=== PATIENT | female | born 1995 | race Hispanic/Latino ===

== ENCOUNTER 2019-11-28 20:45 | Emergency (ER) | payer OTHER ==
[2019-11-28] MEDS ORDERED: ONDANSETRON HCL 4 MG/2 ML VIAL ONE (21:14)
[2019-11-28] MEDS ORDERED: MORPHINE SULFATE 4 MG/1ML SYG ONE (21:15)
[2019-11-28 21:16] LABS: APPEARANCE,URINE Clear (CLEAR); BILIRUBIN,URINE Negative (NEGATIVE); COLOR,URINE Yellow (YELLOW); GLUCOSE, URINE (UA) Negative (NEGATIVE); KETONES,URINE Negative (NEGATIVE); LEUKOCYTE ESTERASE ,URINE Small (NEGATIVE); NITRATE,URINE Negative (NEGATIVE); OCCULT BLOOD,URINE Large (NEGATIVE); PROTEIN,URINE Negative (NEGATIVE)
[2019-11-28 21:18] LABS: HCG,QUAL RESULT NEGATIVE (NEGATIVE)
[2019-11-28 21:24] LABS: BASOPHILS % (AUTO) 0.3 % (0.0-5.0); EOSINOPHILS % (AUTO) 1.5 % (0.0-8.0); HEMATOCRIT 38.9 % (36-48); LYMPHOCYTES % (AUTO) 24.5 % (21.0-51.0); MEAN CORPUSCULAR HEMOGLOBIN 28.4 pg (27.0-33.0); MEAN CORPUSCULAR HGB CONC 32.9 g/dL (32.0-36.0); MEAN CORPUSCULAR VOLUME 86.3 fL (79-99); MONOCYTES % (AUTO) 4.8 % (3.0-13.0); NEUTROPHILS % (AUTO) 68.4 % (40.0-77.0); PLATELET COUNT (AUTO) 308 K/uL (130-400); RED BLOOD CELL COUNT(AUTO) 4.51 MIL/uL (4.00-5.50); RED CELL DISTRIBUTION WIDTH 12.6 % (11.0-15.5)
[2019-11-28 21:32] LABS: RBC,URINE 0-1 /HPF (0-1)
[2019-11-28 21:35] LABS: BACTERIA,URINE Few /HPF (None Seen)
[2019-11-28 21:36] LABS: CREATININE 0.8 mg/dL (0.5-1.5); POTASSIUM 3.9 mmol/L (3.5-5.1)
[2019-11-28 21:38] LABS: SQUAMOUS EPITHELIAL CELL,UR Moderate /HPF (0-2)
[2019-11-28 21:40] LABS: ALBUMIN 3.9 g/dL (3.5-5.0); BILIRUBIN,TOTAL 0.6 mg/dL (0.2-1.0); TOTAL PROTEIN, SERUM 7.6 g/dL (6.0-8.3)
[2019-11-28] MEDS ORDERED: MAG HYDROX/AL HYDROX/SIMETH ES 30 ML SUSP UDCUP ONE (22:50)
[2019-11-28] MEDS ORDERED: LIDOCAINE HCL 2% VISCOUS 15 ML UDCUP ONE (22:50)
== END 2019-11-29 00:17 | disposition home or self-care (01) ==
LOC: EDH 20:45
DX: K29.70 Gastritis, unspecified, without bleeding (principal); N39.0 Urinary tract infection, site not specified; R10.10 Upper abdominal pain, unspecified; Z98.890 Other specified postprocedural states
CPT/HCPCS: 36415; 76705; 80053; 81001; 81025; 83690; 85025; 87088; 96361; 96374; 96375; 99284; J2270; J2405

== ENCOUNTER 2021-01-18 19:20 | Emergency (ER) | payer OTHER ==
[~2021-01-18] VITALS: Ht 152.4 cm; Wt 74.8 kg
[2021-01-18 19:44] VITALS: BP 130/69
[2021-01-18 19:44] LABS: BASOPHILS % (AUTO) 0.2 % (0.0-5.0); EOSINOPHILS % (AUTO) 1.1 % (0.0-8.0); HEMATOCRIT 40.4 % (36-48); LYMPHOCYTES % (AUTO) 27.2 % (21.0-51.0); MEAN CORPUSCULAR HEMOGLOBIN 25.9 pg (27.0-33.0); MEAN CORPUSCULAR HGB CONC 31.7 g/dL (32.0-36.0); MEAN CORPUSCULAR VOLUME 81.8 fL (79-99); MONOCYTES % (AUTO) 4.2 % (3.0-13.0); NEUTROPHILS % (AUTO) 66.9 % (40.0-77.0); PLATELET COUNT (AUTO) 349 K/uL (130-400); RED BLOOD CELL COUNT(AUTO) 4.94 MIL/uL (4.00-5.50); RED CELL DISTRIBUTION WIDTH 14.7 % (11.0-15.5); WHITE BLOOD COUNT (AUTO) 10.2 K/uL (4.8-10.8)
[2021-01-18 19:45] LABS: APPEARANCE,URINE Clear (CLEAR); BILIRUBIN,URINE Negative (NEGATIVE); COLOR,URINE Yellow (YELLOW); GLUCOSE, URINE (UA) Negative (NEGATIVE); KETONES,URINE Trace mg/dL (NEGATIVE); LEUKOCYTE ESTERASE ,URINE Small (NEGATIVE); NITRATE,URINE Negative (NEGATIVE); OCCULT BLOOD,URINE Negative (NEGATIVE); PH,URINE 7.5 (5.0-8.0); PROTEIN,URINE Negative (NEGATIVE)
[2021-01-18 19:53] LABS: HCG,QUAL RESULT NEGATIVE (NEGATIVE)
[2021-01-18] MEDS ORDERED: HYDROMORPHONE 0.5 MG SYG (0.5MG/0.5ML) ONE (19:54)
[2021-01-18 19:57] LABS: BACTERIA,URINE Few /HPF (None Seen); MUCUS,URINE Moderate LPF (None Seen); SQUAMOUS EPITHELIAL CELL,UR Moderate /HPF (0-2)
[2021-01-18 19:59] LABS: CREATININE 0.7 mg/dL (0.5-1.5); POTASSIUM 3.4 mmol/L (3.5-5.1)
[2021-01-18 20:03] LABS: ALBUMIN 3.8 g/dL (3.5-5.0); BILIRUBIN,TOTAL 0.6 mg/dL (0.2-1.0); TOTAL PROTEIN, SERUM 7.9 g/dL (6.0-8.3)
[2021-01-18 20:43] VITALS: BP 106/60
[2021-01-18] MEDS ORDERED: HYDROMORPHONE 0.5 MG SYG (0.5MG/0.5ML) IVP ONE (20:45)
[2021-01-18] MEDS ORDERED: ONDANSETRON 4MG INJ IVP ONE (20:45)
[2021-01-18 21:50] VITALS: BP 119/44
[2021-01-18] MEDS ORDERED: CEPH500C2 PO (22:22)
[2021-01-18] MEDS ORDERED: ACET1TAB25 PO (22:22)
[2021-01-18] MEDS ORDERED: CEFTRIAXONE 1G VIAL IVP SCH (22:30)
[2021-01-18 22:36] VITALS: BP 106/60
== END 2021-01-18 23:10 | disposition home or self-care (01) ==
LOC: EDH 19:20
DX: N39.0 Urinary tract infection, site not specified (principal); R10.11 Right upper quadrant pain; R10.13 Epigastric pain; R11.2 Nausea with vomiting, unspecified
CPT/HCPCS: 36415; 74176; 76705; 80053; 81001; 81025; 83690; 85025; 87088; 96374; 96375; 99285; J0696; J1170; J2405

== ENCOUNTER 2021-08-17 10:22 | Emergency (ER) | payer OTHER ==
[~2021-08-17] VITALS: Ht 154.9 cm; Wt 86.2 kg
[~2021-08-17 10:22] MED LIST: ACET1TAB25 PO; CEPH500C2 PO
[2021-08-17 10:44] LABS: BASOPHILS % (AUTO) 0.3 % (0.0-5.0); EOSINOPHILS % (AUTO) 1.6 % (0.0-8.0); HEMATOCRIT 38.3 % (36-48); LYMPHOCYTES % (AUTO) 40.7 % (21.0-51.0); MEAN CORPUSCULAR HEMOGLOBIN 27.3 pg (27.0-33.0); MEAN CORPUSCULAR HGB CONC 32.4 g/dL (32.0-36.0); MEAN CORPUSCULAR VOLUME 84.4 fL (79-99); MONOCYTES % (AUTO) 4.4 % (3.0-13.0); NEUTROPHILS % (AUTO) 52.3 % (40.0-77.0); PLATELET COUNT (AUTO) 338 K/uL (130-400); RED BLOOD CELL COUNT(AUTO) 4.54 MIL/uL (4.00-5.50); RED CELL DISTRIBUTION WIDTH 13.4 % (11.0-15.5); WHITE BLOOD COUNT (AUTO) 8.8 K/uL (4.8-10.8)
[2021-08-17 10:54] LABS: INR 0.98 (0.85-1.15); PROTHROMBIN TIME 10.7 SEC (9.6-11.6)
[2021-08-17 11:22] LABS: ALBUMIN 3.8 g/dL (3.5-5.0); BILIRUBIN,TOTAL 0.5 mg/dL (0.2-1.0); CREATININE 0.6 mg/dL (0.5-1.5); POTASSIUM 3.5 mmol/L (3.5-5.1); TOTAL PROTEIN, SERUM 7.9 g/dL (6.0-8.3)
[2021-08-17 12:24] LABS: APPEARANCE,URINE TURBID (CLEAR); BILIRUBIN,URINE NEGATIVE (NEGATIVE); COLOR,URINE RED (YELLOW); GLUCOSE, URINE (UA) 100 mg/dL (NEGATIVE); KETONES,URINE 5 mg/dL (NEGATIVE); LEUKOCYTE ESTERASE ,URINE TRACE (NEGATIVE); NITRATE,URINE POSITIVE (NEGATIVE); OCCULT BLOOD,URINE LARGE (NEGATIVE); PH,URINE 6.5 (5.0-8.0); PROTEIN,URINE 100 mg/dL (NEGATIVE)
[2021-08-17 12:31] LABS: HCG,QUAL RESULT NEGATIVE (NEGATIVE)
[2021-08-17 12:52] LABS: BACTERIA,URINE Rare /HPF (None Seen); RBC,URINE TNTC /HPF (0-1); SQUAMOUS EPITHELIAL CELL,UR Rare /HPF (0-2); WBC,URINE 0-1 /HPF (0-1)
[2021-08-17] MEDS ORDERED: MEDR10TA PO (13:56)
[2021-08-17 14:03] VITALS: BP 132/74
== END 2021-08-17 14:03 | disposition home or self-care (01) ==
LOC: EDH 10:22
DX: D25.9 Leiomyoma of uterus, unspecified (principal); N93.8 Other specified abnormal uterine and vaginal bleeding; Z79.899 Other long term (current) drug therapy
CPT/HCPCS: 36415; 76856; 80053; 81001; 81025; 83690; 84703; 85025; 85610; 85730; 87088

== ENCOUNTER 2022-11-16 00:19 | Emergency (ER) | payer OTHER ==
[~2022-11-16] VITALS: Ht 154.9 cm; Wt 92.5 kg
[~2022-11-16 00:19] MED LIST changes: +ACET-2079 PO; -ACET1TAB25 PO; +MEDR10TA PO
[2022-11-16 01:10] LABS: APPEARANCE,URINE CLOUDY (CLEAR); BILIRUBIN,URINE NEGATIVE (NEGATIVE); COLOR,URINE BROWN (YELLOW); GLUCOSE, URINE (UA) NEGATIVE (NEGATIVE); KETONES,URINE NEGATIVE (NEGATIVE); LEUKOCYTE ESTERASE ,URINE 75 Leu/uL (NEGATIVE); NITRATE,URINE NEGATIVE (NEGATIVE); OCCULT BLOOD,URINE LARGE (NEGATIVE); PROTEIN,URINE 30 mg/dL (NEGATIVE); UROBILINOGEN,URINE 0.2 mg/dL (0.2-1.0)
[2022-11-16 01:11] LABS: BASOPHILS % (AUTO) 0.3 % (0.0-5.0); EOSINOPHILS % (AUTO) 1.4 % (0.0-8.0); LYMPHOCYTES % (AUTO) 33.6 % (21.0-51.0); MEAN CORPUSCULAR HEMOGLOBIN 24.6 pg (27.0-33.0); MEAN CORPUSCULAR HGB CONC 31.7 g/dL (32.0-36.0); MEAN CORPUSCULAR VOLUME 77.6 fL (79-99); MONOCYTES % (AUTO) 5.5 % (3.0-13.0); NEUTROPHILS % (AUTO) 58.8 % (40.0-77.0); PLATELET COUNT (AUTO) 419 K/uL (130-400); RED BLOOD CELL COUNT(AUTO) 4.64 MIL/uL (4.00-5.50); WHITE BLOOD COUNT (AUTO) 10.6 K/uL (4.8-10.8)
[2022-11-16 01:17] LABS: BACTERIA,URINE RARE /HPF (None Seen); MUCUS,URINE RARE LPF (None Seen); RBC,URINE TNTC /HPF (0-1)
[2022-11-16 01:26] LABS: CREATININE 0.9 mg/dL (0.5-1.5); POTASSIUM 3.4 mmol/L (3.5-5.1)
[2022-11-16 01:31] LABS: ALBUMIN 3.5 g/dL (3.5-5.0); TOTAL PROTEIN, SERUM 7.8 g/dL (6.0-8.3)
[2022-11-16] MEDS ORDERED: KETOROLAC 60 MG VIAL (30MG/ML) IM ONE (02:30)
[2022-11-16] MEDS ORDERED: IBUP-1493 PO (03:30)
[2022-11-16 03:43] VITALS: BP 124/83
== END 2022-11-16 03:55 | disposition home or self-care (01) ==
LOC: EDH 00:19
DX: N92.0 Excessive and frequent menstruation with regular cycle (principal); Z79.899 Other long term (current) drug therapy; Z98.890 Other specified postprocedural states
CPT/HCPCS: 99285; 76856; 80053; 85025; 87088; 81001; 81025; 36415; 96372; J1885

== ENCOUNTER 2023-11-26 09:33 | Emergency (ER) | payer OTHER ==
[~2023-11-26 09:33] MED LIST changes: -ACET-2079 PO; -CEPH500C2 PO; +IBUP-1493 PO; -MEDR10TA PO
[2023-11-26 09:59] LABS: APPEARANCE,URINE CLOUDY (CLEAR); BILIRUBIN,URINE NEGATIVE (NEGATIVE); COLOR,URINE YELLOW (YELLOW); GLUCOSE, URINE (UA) NEGATIVE (NEGATIVE); KETONES,URINE NEGATIVE (NEGATIVE); LEUKOCYTE ESTERASE ,URINE 250 Leu/uL (NEGATIVE); NITRATE,URINE NEGATIVE (NEGATIVE); OCCULT BLOOD,URINE LARGE (NEGATIVE); PH,URINE 6.5 (5.0-8.0); PROTEIN,URINE 20 mg/dL (NEGATIVE); UROBILINOGEN,URINE 0.2 mg/dL (0.2-1.0)
[2023-11-26 10:29] LABS: ADD UA MICROSCOPIC YES
[2023-11-26 10:37] LABS: BACTERIA,URINE Rare /HPF (None Seen); RBC,URINE 51-100 /HPF (0-1); WBC,URINE 26-50 /HPF (0-1)
[2023-11-26 10:38] LABS: SQUAMOUS EPITHELIAL CELL,UR Few /HPF (0-2)
[2023-11-26] MEDS: LIDOCAINE HCL 1% 20 ML VIAL ONE (11:24)
[2023-11-26] MEDS: CEFTRIAXONE 1G VIAL IM ONE (11:24)
[2023-11-26] MEDS ORDERED: SULF1TAB42 PO (11:37)
[2023-11-26 11:41] VITALS: BP 125/74; PULSE 79; RESP 18; O2SAT 99
== END 2023-11-26 11:43 | disposition home or self-care (01) ==
LOC: EDH 09:33
DX: N39.0 Urinary tract infection, site not specified (principal); Z79.1 Long term (current) use of non-steroidal anti-inflammatories (NSAID)
CPT/HCPCS: 99283; 87088; 81001; 81025; 96372; J0696

== ENCOUNTER 2024-11-28 20:54 | Emergency (ER) | payer SELFPAY ==
[~2024-11-28] VITALS: Ht 154.9 cm; Wt 91.6 kg
[~2024-11-28 20:54] MED LIST changes: +SULF1TAB42 PO
--- NOTE | 2024-11-28 21:37 | ERN ---
ED Note History of Present Illness Stated Complaint: ABD PAIN Chief Complaint: Abdominal Pain Time Seen by MD: 20:56 Dictation: PATIENT IS A 29-YEAR-OLD FEMALE WHO IS COMING IN WITH SEVERE PELVIC PAIN CRAMPING, HAS BEEN ON HER MENSES TWO DAYS. NO FEVER NO CHILLS NO NAUSEA VOMITING. Allergies: Coded Allergies: No Known Drug Allergies (Unverified Allergy, Unknown, 11/29/19) Home Meds Active Scripts Sulfamethoxazole/Trimethoprim (Bactrim Ds Tablet) 800 Mg-160 Mg Tablet, 1 TAB PO BID for 7 Days, #14 TAB Prov:MAYKEL HENDERSON 11/26/23 Ibuprofen (Motrin/Advil) 800 Mg Tab, 800 MG PO TID, #30 TAB Prov:MILADIS TAYLOR MD 11/16/22 Past Medical History Past Medical History: No Pertinent History Surgical History: Family History: Negative Social History: Negative, Other History: Not Applicable LMP: November 28, 2024 RN Note Reviewed/Agreed w/PFSH: Yes Review of System Dictation CONSTITUTIONAL: NEGATIVE EXCEPT FOR HPI HEAD/FACE: NEGATIVE EXCEPT FOR HPI EENT: NEGATIVE EXCEPT FOR HPI RESPIRATORY: NEGATIVE EXCEPT FOR HPI GASTROINTESTINAL/ABDOMINAL: NEGATIVE EXCEPT FOR HPI GENITOURINARY: NEGATIVE EXCEPT FOR HPI SEVERE PELVIC PAIN/CRAMPING MUSCULOSKELETAL: NEGATIVE EXCEPT FOR HPI INTEGUMENTARY: NEGATIVE EXCEPT FOR HPI NEUROLOGICAL/PSYCH: NEGATIVE EXCEPT FOR HPI HEMATOLOGIC/LYMPHATIC: NEGATIVE EXCEPT FOR HPI ALL SYSTEMS NEGATIVE, EXCEPT NOTED ABOVE. 13 POINT REVIEW OF SYSTEMS ASSESSED AND ALL NEGATIVE EXCEPT FOR ABOVE. Initial Vital Sign VS Vital Signs Date Time Temp Pulse Resp B/P (MAP) Pulse Ox O2 Delivery O2 Flow Rate FiO2 11/28/24 21:24 99.9 107 20 136/86 100 Room Air Physical Exam Dictation VITAL SIGNS REVIEWED GENERAL APPEARANCE: ALERT, ORIENTED X 3, MODERATE ACUTE DISTRESS, WELL DEVELOPED, NOURISHED. HEAD AND FACE: NON-TRAUMATIC. EYES: PERRL, PINK CONJUNCTIVAS, EYELID NO TRAUMA, ANTERIOR CHAMBER WITH ARCUS SENILIS. EARS: PINNAS INTACT AND NO SIGNS OF TRAUMA OR ERYTHEMA EAR CANALS CLEAR AND NO DISCHARGE TM NO ERYTHEMA NOSE: NO DISCHARGE, NO BLEEDING. OROPHARYNX: MOUTH NORMAL, TONGUE PINK, PHARYNX CLEAR,NO ERYTHEMA, TONSILS NO EXUDATES, NO ABSCESSES NOTED, MUCOUS MEMBRANE MOIST NECK: SUPPLE, NON-TENDER, NO THYROMEGALY, NO MASSES, NO JVD, NO BRUITS BREAST:DEFERRED CHEST:NO TENDERNESS, NO CREPITUS, NO PARADOXICAL MOVEMENT, NO RETRACTIONS LUNGS:CLEAR, WELL-VENTILATED, SYMMETRIC, NO RALES, NO WHEEZING, NO RHONCHI, NO STRIDOR, GOOD BREATH SOUNDS BILATERALLY HEART: REGULAR RATE, REGULAR RHYTHM, NO MURMUR, NO GALLOPS VASCULAR: NO PERIPHERAL EDEMA, ABDOMEN: SOFT, POSITIVE BOWEL SOUNDS, NONDISTENDED, NO GUARDING, NONTENDER, NO REBOUND, NO MASSES NO HEPATOMEGALY, NO SPLENOMEGALY, NO LANCASTER'S SIGN, NO HERNIAS. RECTAL: DEFERRED GENITAL: DEFERRED NEUROLOGICAL: NORMAL SPEECH, MOTOR FUNCTION INTACT, SENSORY FUNCTION INTACT MUSCULOSKELETAL: NECK NONTENDER, FULL RANGE OF MOTION, BACK NONTENDER, FULL RANGE OF MOTION, EXTREMITIES: NONTENDER, FULL RANGE OF MOTION SKIN: COLOR PINK, DRY, NO TURGOR, NO RASH, NO LACERATIONS, NO ABRASIONS, NO CONTUSIONS. LYMPHATIC: DEFERRED Results (Laboratory/Radiology) Laboratory/Radiology Non OB ultrasound demonstrates good flow to both ovaries No masses Labs Reviewed?: Yes ED Course ED Course Orders Procedure Category Date Status Time Cbc With Differential LAB 11/28/24 Logged 21:34 Urinalysis Profile LAB 11/28/24 Logged 21:34 Us Pelvic Non-Ob Comp US 11/28/24 Taken 21:34 0.9%Nacl 1000ml (Ns PHA 11/28/24 Complete 1000ml) 22:00 Morphine 2mg Syg PHA 11/28/24 Complete (Morphine 2mg Syg) 22:00 Ondansetron 4mg Inj PHA 11/28/24 Complete (Zofran 4mg Inj) 22:00 Basic Metabolic Panel LAB 11/28/24 Logged 21:34 Testing, LAB 11/28/24 Logged Serum Hcg 21:35 Current Medications Medications (Trade) Dose Ordered Sig/Isamar Route PRN Reason Start Time Stop Time Status Last Admin Dose Admin Morphine Sulfate (morPHINE 2MG SYG) 2 mg ONCE ONCE IVP 11/28/24 22:00 11/28/24 22:01 DC 11/28/24 21:55 Ondansetron HCl (zoFRAN 4MG INJ) 4 mg ONCE ONCE IVP 11/28/24 22:00 11/28/24 22:01 DC 11/28/24 21:54 Sodium Chloride 1,000 ml @ 0 mls/hr ONCE ONCE IV 11/28/24 22:00 11/28/24 22:01 DC 11/28/24 21:54 Vital Signs Date Time Temp Pulse Resp B/P (MAP) Pulse Ox O2 Delivery O2 Flow Rate FiO2 11/28/24 21:24 99.9 107 20 136/86 100 Room Air DX & DISP Departure Condition: Stable Referrals: SELF,REFERRAL (PCP) BRENT MILAN KST OPERATOR November 28, 2024 21:37
--- NOTE | 2024-11-28 21:50 | NUR ---
PT ARRIVED TO ED C/O LOWER ABD PAIN / GAURDING ABD. PT ALSO C/O NAUSEA AND VOMITING AT HOME. PT CURRENTLY IS RESTLESS IN PAIN, US AT BEDSIDE. PT VOICED ON MENSTRAL CYCLE AT THIS TIME.
[2024-11-28] MEDS: ondanSETRON 4MG INJ IVP ONE (21:54)
[2024-11-28] MEDS: 0.9%NACL 1000ML 1,000 ML IV ONE (21:54)
[2024-11-28] MEDS: morPHINE 2 MG SYG IVP ONE (21:55)
[2024-11-28 22:15] LABS: BASOPHILS # (AUTO) 0.03 K/uL (0.00-0.20); BASOPHILS % (AUTO) 0.2 % (0.0-5.0); EOSINOPHILS # (AUTO) 0.13 K/uL (0.00-0.70); HEMATOCRIT 32.5 % (36-48); IMMATURE GRANULOCYTE ABSOLUTE 0.04 K/uL (0-1); LYMPHOCYTES # (AUTO) 3.4 K/uL (1.0-4.8); LYMPHOCYTES % (AUTO) 26.6 % (21.0-51.0); MEAN CORPUSCULAR HEMOGLOBIN 25.8 pg (27.0-33.0); MEAN CORPUSCULAR HGB CONC 31.7 g/dL (32.0-36.0); MEAN CORPUSCULAR VOLUME 81.3 fL (79-99); MONOCYTES # (AUTO) 0.5 K/uL (0.1-1.0); NEUTROPHILS # (AUTO) 8.6 K/uL (1.8-7.7); NEUTROPHILS % (AUTO) 67.9 % (40.0-77.0); PLATELET COUNT (AUTO) 433 K/uL (130-400); RED CELL DISTRIBUTION WIDTH 13.3 % (11.0-15.5); WHITE BLOOD COUNT (AUTO) 12.7 K/uL (4.8-10.8)
[2024-11-28 22:31] LABS: CREATININE 0.6 mg/dL (0.5-1.0); POTASSIUM 3.3 mmol/L (3.5-5.1)
[2024-11-28] MEDS ORDERED: ketOROlac 30MG VIAL (30MG/ML) IM ONE (23:30)
[2024-11-29] MEDS: morPHINE 2 MG SYG IVP ONE (00:01)
[2024-11-29 00:05] VITALS: BP 111/69; PULSE 94; RESP 20; TEMP 98.3; O2SAT 100
--- NOTE | 2024-11-29 09:15 | HMCIMG ---
Exam Type: US PELVIC NON-OB COMP Clinical Information: SEVERE PELVIC PAIN PATIENT ON MENSES Comparison: None Findings: The uterus is normal in size and echogenicity. The endometrial lining is normal in thickness. No intrauterine or ectopic seen. The ovaries are normal in size and echogenicity. Vascular Doppler flow exam and spectral analysis of waveforms analysis is unremarkable bilaterally. There is preserved vascularity to both ovaries on Doppler evaluation. Specifically, there is no evidence of ovarian torsion. No free fluid is noted throughout the cul-de-sac. There are no adnexal abnormalities. No other significant abnormalities are seen. No fluid collections or masses or free fluid are identified in the pelvis. Impression: NORMAL EXAM. No evidence of uterine pathology. No evidence of adnexal abnormalities or ovarian torsion. No intrauterine or ectopic seen.
== END 2024-11-29 00:14 | disposition home or self-care (01) ==
LOC: EDH 20:54
DX: R10.2 Pelvic and perineal pain (principal); Z79.1 Long term (current) use of non-steroidal anti-inflammatories (NSAID); Z98.890 Other specified postprocedural states
CPT/HCPCS: 99285; 96374; 76856; 96361; 96375; 80048; 84703; 85025; 36415; 96376; J2270 ×2; J7030; J2405